=== PATIENT | female | born 2005 | race Two or more races ===

== ENCOUNTER 2024-12-24 20:01 | Emergency (ER) | payer SELFPAY ==
[~2024-12-24] VITALS: Ht 165.1 cm; Wt 100.0 kg
[2024-12-24 20:01] VITALS: BP 120/72; PULSE 82; RESP 20; TEMP 98.3; O2SAT 100
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
[2024-12-24] MEDS ORDERED: IBUP-1456 PO (22:29)
[2024-12-24] MEDS: KETOROLAC TROMETH 60MG/2ML VIAL IM ONE (23:33)
== END 2024-12-24 22:31 | disposition home or self-care (01) ==
LOC: ER 20:01
DX: S66.911A Strain of unspecified muscle, fascia and tendon at wrist and hand level, right hand, initial encounter (principal); S00.83XA Contusion of other part of head, initial encounter; W22.09XA Striking against other stationary object, initial encounter; Y93.89 Activity, other specified; Y92.89 Other specified places as the place of occurrence of the external cause; Y99.8 Other external cause status
CPT/HCPCS: 70486; 73110